=== PATIENT | female | born 1975 | race Caucasian/White ===

== ENCOUNTER → 2019-10-08 13:27 | Outpatient (CLI) | payer MEDICAID, SELFPAY ==
--- NOTE | 2019-10-08 14:56 | NEURO ---
NCS and/or EMG Patient Report Ordering Doctor: Deny Romano DATE OF SERVICE: 10/08/19 Veronica Watts is a 43-year-old female presents for electrodiagnostic testing of the upper limbs. She reports numbness and tingling in both hands. Electrodiagnostic findings: Median motor nerve demonstrates prolonged distal latency bilaterally with normal amplitude and reduced conduction velocity. Normal ulnar motor response bilaterally, including conduction across the elbow. Normal ulnar F wave bilaterally. Prolonged median F wave bilaterally. Prolonged median sensory latency at the wrist and palm bilaterally. On needle EMG, all muscles tested in the upper limb showed no evidence of denervation with normal motor unit action potentials. Electrodiagnostic assessment: This is an abnormal study in the upper limbs. 1. Electrodiagnostic findings demonstrate bilateral median mononeuropathy. This is consistent with an advanced bilateral carpal tunnel syndrome. If there are any further questions, please do not hesitate to contact me.
== END ==
PROVIDERS: Family Provider Family Medicine; PCP Family Medicine; Referring Provider Orthopaedic Surgery; Visit Provider Orthopaedic Surgery
DX: G56.03 Carpal tunnel syndrome, bilateral upper limbs (principal)
CPT/HCPCS: 95886; 95912